=== PATIENT | male | born 1950 | race Hispanic/Latino ===

== ENCOUNTER 2017-10-31 19:19 | Emergency (ER) | payer MEDICARE ==
[2017-10-31 19:43] VITALS: TEMP 98.1
--- NOTE | 2017-10-31 20:42 | ED PDOC ---
HPI: Male Pain Time Seen by Provider: 10/31/17 20:10 Chief Complaint (Nursing): Male Genitourinary Chief Complaint (Provider): Urinary Retention History Per: Patient History/Exam Limitations: no limitations Onset/Duration Of Symptoms: Hrs (since 06:00) Current Symptoms Are (Timing): Still Present Additional Complaint(s): 67 year old male presented to the ED complaining of urinary retention since 06: 00 today. Patient reports he is unable to urinate and has suprapubic pain and constipation. He is also complaining of painful hemorrhoids for a couple of days. Patient states he has a lot of pain in the bladder and wants to be evaluated. PCP: Tristen Brock Past Medical History Reviewed: Historical Data, Nursing Documentation, Vital Signs Vital Signs: Last Vital Signs Temp 98.1 F 10/31/17 19:41 Pulse 75 10/31/17 19:41 Resp 16 10/31/17 19:41 BP 154/85 H 10/31/17 19:41 Pulse Ox 97 10/31/17 19:41 - Medical History Other PMH: Enlarged prostate - Surgical History Other surgeries: bilateral hernia repair and renal repair - Family History Family History: States: Unknown Family Hx - Home Medications Home Medications: Ambulatory Orders Medication Instructions Recorded Docusate Sodium [Colace] 100 mg PO BID #30 capsule 10/31/17 Nitrofurantoin Macrocrystals 100 mg PO BID #10 cap 10/31/17 [Macrobid] Tamsulosin HCl [Flomax] 0.4 mg PO DAILY #5 cap.er.24h 10/31/17 - Allergies Allergies/Adverse Reactions: Allergies Allergy/AdvReac Type Severity Reaction Status Date / Time No Known Allergies Allergy Verified 10/31/17 20:05 Review of Systems ROS Statement: Except As Marked, All Systems Reviewed And Found Negative Gastrointestinal: Positive for: Abdominal Pain (suprapubic), Constipation, Other (painful hemorrhoids) Genitourinary Male: Positive for: Other (Urinary retention) Physical Exam - Reviewed Nursing Documentation Reviewed: Yes Vital Signs Reviewed: Yes - Physical Exam Appears: Positive for: Non-toxic, Uncomfortable Head Exam: Positive for: ATRAUMATIC, NORMAL INSPECTION, NORMOCEPHALIC Skin: Positive for: Normal Color, Warm, Dry Eye Exam: Positive for: Normal appearance Neck: Positive for: Normal, Painless ROM Cardiovascular/Chest: Positive for: Regular Rate, Rhythm. Negative for: Murmur Respiratory: Positive for: Normal Breath Sounds. Negative for: Wheezing, Respiratory Distress Gastrointestinal/Abdominal: Positive for: Soft, Tenderness (suprapubic tenderness). Negative for: Distended Extremity: Positive for: Normal ROM Neurologic/Psych: Positive for: Alert, Oriented. Negative for: Motor/Sensory Deficits - Laboratory Results Result Diagrams: 10/31/17 21:21 10/31/17 21:21 - ECG O2 Sat by Pulse Oximetry: 97 (RA) Pulse Ox Interpretation: Normal - Progress Re-evaluation Time: 22:21 Condition: Re-examined, Improved Medical Decision Making Medical Decision Making: Initial Impression: Urinary retention Differentials: UTI, acute renal failure, obstructive uropathy Initial Plan: BMP Dipstick CBC Fairbanks urinary catheter 20:15 Fairbanks catheter inserted. Significant urinary output in bag. Patient is feeling much better. Scribe Attestation: Documented by Danyel Tanner acting as a scribe for Tal Cruz MD. Provider Scribe Attestation: All medical record entries made by the Scribe were at my direction and personally dictated by me. I have reviewed the chart and agree that the record accurately reflects my personal performance of the history, physical exam, medical decision making, and the department course for this patient. I have also personally directed, reviewed, and agree with the discharge instructions and disposition. Disposition - Clinical Impression Clinical Impression: Urinary retention Doctor Will See Patient In The: Office Counseled Patient/Family Regarding: Studies Performed, Diagnosis, Need For Followup - Disposition Referrals: Becca Tyler MD [Medical Doctor] - Disposition: Routine/Home Disposition Time: 22:22 Condition: GOOD Additional Instructions: Take your medications as instructed. Follow up with your PCP in 2-3 days for fairbanks removal. Prescriptions: Docusate Sodium [Colace] 100 mg PO BID #30 capsule Nitrofurantoin Macrocrystals [Macrobid] 100 mg PO BID #10 cap Tamsulosin HCl [Flomax] 0.4 mg PO DAILY #5 cap.er.24h Instructions: Urinary Retention (DC), Constipation in Adults
[2017-10-31 21:28] LABS: BASO % 0.4 % (0.0-2.0); EOS % 1.1 % (0.0-4.0); HEMOGLOBIN 13.3 g/dL (12.0-18.0); LYMPH # 1.1 K/uL (1.0-4.3); LYMPH % 25.7 % (20.0-40.0); MEAN CELL VOLUME 83.7 fl (80.0-94.0); MEAN CORPUSCULAR HEMOGLOBIN 29.1 pg (27.0-31.0); MEAN CORPUSCULAR HGB CONC 34.8 g/dL (33.0-37.0); MEAN PLATELET VOLUME 7.7 fl (7.2-11.7); MONO # 0.6 K/uL (0.0-0.8); MONO % 13.3 % (0.0-10.0); NEUT # 2.5 K/uL (1.8-7.0); NEUT % 59.5 % (50.0-75.0); NRBC % 0.1 % (0.0-0.0); RBC 4.56 Mil/uL (4.40-5.90); RED CELL DISTRIBUTION WIDTH 13.5 % (11.5-14.5); WHITE BLOOD COUNT 4.3 K/uL (4.8-10.8)
[2017-10-31 21:33] LABS: BLOOD UREA NITROGEN 13 mg/dl (9-20); GFR AFRICAN-AMERICAN > 60; GFR NON-AFRICAN AMERICAN > 60
[2017-10-31 23:07] VITALS: BP 114/65; PULSE 62; RESP 18; O2SAT 99
== END 2017-10-31 23:15 | disposition home or self-care (01) ==
LOC: H.ER 19:19
DX: R33.9 Retention of urine, unspecified (principal); K59.00 Constipation, unspecified; N40.1 Benign prostatic hyperplasia with lower urinary tract symptoms

== ENCOUNTER 2017-11-03 08:11 | Emergency (ER) | payer MEDICARE, OTHER ==
[2017-11-03 08:19] VITALS: BMI 22.1
--- NOTE | 2017-11-03 08:54 | ED PDOC ---
HPI: General Adult Time Seen by Provider: 11/03/17 08:42 History Per: Patient Onset/Duration Of Symptoms: Days (3) Current Symptoms Are (Timing): Still Present Severity: Mild Additional Complaint(s): Requesting removal Fairbanks and leg bag. Seen 3 days ago here for urinary retention. Fairbanks placed and sent home with leg bag. Has not called for f/u with Past Medical History Vital Signs: Last Vital Signs Temp 97.1 F L 11/03/17 08:18 Pulse 94 H 11/03/17 08:18 Resp BP 134/85 11/03/17 08:18 Pulse Ox 96 11/03/17 08:18 - Medical History PMH: No Chronic Diseases - Family History Family History: States: Unknown Family Hx - Home Medications Home Medications: Ambulatory Orders Medication Instructions Recorded Docusate Sodium [Colace] 100 mg PO BID #30 capsule 10/31/17 Nitrofurantoin Macrocrystals 100 mg PO BID #10 cap 10/31/17 [Macrobid] Tamsulosin HCl [Flomax] 0.4 mg PO DAILY #5 cap.er.24h 10/31/17 - Allergies Allergies/Adverse Reactions: Allergies Allergy/AdvReac Type Severity Reaction Status Date / Time No Known Allergies Allergy Verified 10/31/17 20:05 Review of Systems Constitutional: Negative for: Fever Gastrointestinal: Negative for: Abdominal Pain Genitourinary Male: Positive for: Dysuria, Hematuria Physical Exam - Physical Exam Appears: Positive for: Non-toxic, No Acute Distress Gastrointestinal/Abdominal: Positive for: Bowel Sounds, Soft. Negative for: Tenderness Male Genital Exam: Positive for: other (Scant blood tinged urine in leg bag) - ECG O2 Sat by Pulse Oximetry: 96 Medical Decision Making Medical Decision Making: Advised leaving fairbanks in place until seen by . Pt agrees. Disposition - Clinical Impression Clinical Impression: Urinary retention - Patient ED Disposition Is Patient to be Admitted: No - Disposition Referrals: Becca Tyler MD [Medical Doctor] - Disposition: Routine/Home Disposition Time: 08:54 Condition: FAIR Instructions: Urinary Retention (DC)
[2017-11-03 09:07] VITALS: BP 132/79; PULSE 81; RESP 18; TEMP 97.8; O2SAT 98
== END 2017-11-03 09:00 | disposition home or self-care (01) ==
LOC: H.ER 08:11
DX: R33.9 Retention of urine, unspecified (principal)

== ENCOUNTER 2017-11-04 10:12 | Emergency (ER) | payer MEDICARE ==
[2017-11-04 10:12] VITALS: BMI 22.1
[2017-11-04 12:06] LABS: ALB/GLOB RATIO 1.3 (1.0-2.1); ALBUMIN 4.1 g/dL (3.5-5.0); ALT/SGPT 30 U/L (21-72); AST/SGOT 33 U/L (17-59); BLOOD UREA NITROGEN 13 mg/dl (9-20); CALCIUM 9.2 mg/dL (8.4-10.2); GFR AFRICAN-AMERICAN > 60; GFR NON-AFRICAN AMERICAN > 60
--- NOTE | 2017-11-04 12:07 | ED PDOC ---
HPI: Male Pain Time Seen by Provider: 11/04/17 10:34 Chief Complaint (Nursing): Male Genitourinary Chief Complaint (Provider): Male Genitourinary History Per: Patient History/Exam Limitations: no limitations Onset/Duration Of Symptoms: Days (x2) Current Symptoms Are (Timing): Still Present Additional Complaint(s): 67 y/o male with a PMHx of urinary retention (due to BPH) presenting for evaluation of difficulty urinating. Patient was seen at this facility on for evaluation of urinary retention and had a fairbanks catheter placed at that time. Patient reports he was seen by Dr. Tyler yesterday and had the fairbanks catheter removed. He states since that time he has been unable to urinate. Patient is also complaining of constipation. He denies fever and vomiting. PMD: None provided Past Medical History Reviewed: Historical Data, Nursing Documentation, Vital Signs Vital Signs: Last Vital Signs Temp 98.1 F 11/04/17 10:19 Pulse 97 H 11/04/17 10:19 Resp 20 11/04/17 10:19 BP 167/87 H 11/04/17 10:19 Pulse Ox 97 11/04/17 10:19 - Medical History PMH: Benign Prostatic Hyperplasia - Surgical History Surgical History: Hernia Repair - Family History Family History: States: Unknown Family Hx - Social History Current smoker - smoking cessation education provided: No Alcohol: None Drugs: Denies - Home Medications Home Medications: Ambulatory Orders Medication Instructions Recorded Docusate Sodium [Colace] 100 mg PO BID #30 capsule 10/31/17 Nitrofurantoin Macrocrystals 100 mg PO BID #10 cap 10/31/17 [Macrobid] Tamsulosin HCl [Flomax] 0.4 mg PO DAILY #5 cap.er.24h 10/31/17 - Allergies Allergies/Adverse Reactions: Allergies Allergy/AdvReac Type Severity Reaction Status Date / Time No Known Allergies Allergy Verified 11/04/17 10:36 Review of Systems ROS Statement: Except As Marked, All Systems Reviewed And Found Negative Constitutional: Negative for: Fever Gastrointestinal: Positive for: Constipation. Negative for: Vomiting Genitourinary Male: Positive for: Other (retention) Physical Exam - Reviewed Nursing Documentation Reviewed: Yes Vital Signs Reviewed: Yes - Physical Exam Appears: Positive for: Non-toxic, No Acute Distress Head Exam: Positive for: ATRAUMATIC, NORMAL INSPECTION, NORMOCEPHALIC Skin: Positive for: Normal Color, Warm, Dry Eye Exam: Positive for: EOMI, Normal appearance, PERRL ENT: Positive for: Normal ENT Inspection Neck: Positive for: Normal, Painless ROM, Supple Cardiovascular/Chest: Positive for: Regular Rate, Rhythm. Negative for: Murmur Respiratory: Positive for: Normal Breath Sounds. Negative for: Respiratory Distress Gastrointestinal/Abdominal: Positive for: Soft, Tenderness (slight superpubic tenderness) Back: Positive for: Normal Inspection. Negative for: L CVA Tenderness, R CVA Tenderness, Vertebral Tenderness Extremity: Positive for: Normal ROM. Negative for: Pedal Edema, Deformity Neurologic/Psych: Positive for: Alert, Oriented. Negative for: Motor/Sensory Deficits - Laboratory Results Result Diagrams: 11/04/17 11:20 11/04/17 11:20 - ECG O2 Sat by Pulse Oximetry: 97 (RA) Pulse Ox Interpretation: Normal Medical Decision Making Medical Decision Makin:39 Impression: Urinary retention Plan: -CMP -CBC w/ differential -Fairbanks catheter -Reevaluation 12:[address] Tyler. 12:53 Patient able to urinate 800 ccs after fairbanks catheter placement. 12:[address] Tyler. Patient to be discharged with catheter, leg bag, and instructions to follow up at Dr. Tyler's office on 11/06/17. Scribe Attestation: Documented by Sean Gudino, acting as a scribe for Yaniv Seaman MD. Provider Scribe Attestation: All medical record entries made by the Scribe were at my direction and personally dictated by me. I have reviewed the chart and agree that the record accurately reflects my personal performance of the history, physical exam, medical decision making, and the department course for this patient. I have also personally directed, reviewed, and agree with the discharge instructions and disposition. Disposition - Clinical Impression Clinical Impression: Urinary retention, Constipation - Patient ED Disposition Is Patient to be Admitted: No Counseled Patient/Family Regarding: Studies Performed, Diagnosis, Need For Followup - Disposition Referrals: Becca Tyler MD [Medical Doctor] - Disposition: Routine/Home Disposition Time: 12:56 Condition: IMPROVED Additional Instructions: follow up with Dr Tyler Thursday continue high fiber diet and colace for constipation return to the ED with any worsening or concerning symptoms Instructions: Constipation, Adult (DC), How to Care for Your Fairbanks Catheter, Male, Urinary Retention (DC) Forms: [employer] ([place]rainian)
[2017-11-04 12:27] LABS: BASO % 0.4 % (0.0-2.0); EOS % 0.7 % (0.0-4.0); HEMOGLOBIN 12.7 g/dL (12.0-18.0); LYMPH # 0.6 K/uL (1.0-4.3); LYMPH % 23.7 % (20.0-40.0); MEAN CELL VOLUME 84.8 fl (80.0-94.0); MEAN CORPUSCULAR HEMOGLOBIN 28.4 pg (27.0-31.0); MEAN CORPUSCULAR HGB CONC 33.5 g/dL (33.0-37.0); MEAN PLATELET VOLUME 8.4 fl (7.2-11.7); MONO # 0.3 K/uL (0.0-0.8); MONO % 12.8 % (0.0-10.0); NEUT # 1.6 K/uL (1.8-7.0); NEUT % 62.4 % (50.0-75.0); NRBC % 0.1 % (0.0-0.0); RBC 4.48 Mil/uL (4.40-5.90); RED CELL DISTRIBUTION WIDTH 13.2 % (11.5-14.5); WHITE BLOOD COUNT 2.5 K/uL (4.8-10.8)
[2017-11-04 13:51] VITALS: BP 132/70; PULSE 77; RESP 18; TEMP 97; O2SAT 99
== END 2017-11-04 13:50 | disposition home or self-care (01) ==
LOC: H.ER 10:12
DX: R33.9 Retention of urine, unspecified (principal)

== ENCOUNTER 2017-12-09 20:41 | Emergency (ER) | payer MEDICARE, OTHER ==
[2017-12-09 20:41] VITALS: BMI 20.5
--- NOTE | 2017-12-09 23:12 | ED PDOC ---
HPI: Male Pain Time Seen by Provider: 12/09/17 21:01 Chief Complaint (Nursing): Male Genitourinary Chief Complaint (Provider): blocked fairbanks Additional Complaint(s): Pt had fairbanks cath placed by Dr Tyler. Sent to ER for malfunctioning, possible blockage. Past Medical History Reviewed: Historical Data, Nursing Documentation, Vital Signs Vital Signs: Last Vital Signs Temp 98.3 F 12/09/17 20:55 Pulse 93 H 12/09/17 20:55 Resp 16 12/09/17 20:55 BP 135/84 12/09/17 20:55 Pulse Ox 97 12/09/17 20:55 - Medical History PMH: Benign Prostatic Hyperplasia - Surgical History Surgical History: Hernia Repair - Family History Family History: States: Unknown Family Hx - Home Medications Home Medications: Ambulatory Orders Medication Instructions Recorded Nitrofurantoin Macrocrystals 100 mg PO BID #10 cap 10/31/17 [Macrobid] - Allergies Allergies/Adverse Reactions: Allergies Allergy/AdvReac Type Severity Reaction Status Date / Time No Known Allergies Allergy Verified 12/09/17 20:55 Review of Systems Gastrointestinal: Positive for: Abdominal Pain Genitourinary Male: Positive for: Penile Pain Physical Exam - Reviewed Nursing Documentation Reviewed: Yes Vital Signs Reviewed: Yes - Physical Exam Appears: Positive for: No Acute Distress Skin: Positive for: Warm, Dry Gastrointestinal/Abdominal: Positive for: Soft, Distended (mild). Negative for : Tenderness Male Genital Exam: Positive for: other (3-way fairbanks in place) - ECG O2 Sat by Pulse Oximetry: 97 - Progress ED Course And Treament: On initial attempt of irrigation, unable to clear block DW Dr Tyler who advised replacement of fairbanks Fairbanks replaced by RN with successful relief of retention. Disposition - Clinical Impression Clinical Impression: Urinary retention, Malfunction of Fairbanks catheter - Disposition Referrals: Becca Tyler MD [Medical Doctor] - 12/10/17 Disposition: Routine/Home Disposition Time: 23:04 Condition: IMPROVED Instructions: Fairbanks Catheter, Male Forms: [employer] ([place])
[2017-12-09 23:51] VITALS: BP 130/80; PULSE 90; RESP 18; TEMP 98.6
[2017-12-10 16:04] VITALS: O2SAT 97
== END 2017-12-09 23:40 | disposition home or self-care (01) ==
LOC: H.ER 20:41
DX: R33.8 Other retention of urine (principal); N40.1 Benign prostatic hyperplasia with lower urinary tract symptoms

== ENCOUNTER 2018-01-03 21:22 | Inpatient (IN) | payer MEDICARE ==
[2018-01-03 21:22] VITALS: BMI 20.5
--- NOTE | 2018-01-03 22:35 | ED PDOC ---
HPI: Skin/Bite Injury Time Seen by Provider: 01/03/18 21:40 Chief Complaint (Nursing): Male Genitourinary Chief Complaint (Provider): Male Genitourinary History Per: Patient History/Exam Limitations: no limitations Onset/Duration Of Symptoms: Days Current Symptoms Are (Timing): Still Present Quality Of Symptoms: Painful, Itching Additional Complaint(s): 67 y/o male with a PMHx of BPH presents to the ED complaining of diffuse rash, onset Thursday. Patient states rash is itchy and uncomfortable. Patient reports of he started taking Bactrim two days prior to the onset of the rash (6 days ago) to treat a UTI. Patient states he had a green light laser procedure done by Dr. Tyler for his prostrate at the end of November and was put on Cipro but due to GI adverse affects, had to stop and be put on bactrim. Patient is now also complaining of frequent urination, painful urination, bladder pain, myalgia, chills, constipation and is unable to sleep at night. Patient states his last dose of Bactrim was at 8 PM yesterday reports of feeling less itchy since. Patient reports his sister called Dr. Tyler who advised the patient to go to the ER for further evaluation. Denies nausea, vomiting, hematuria and fever. PMD: Tristen Iqbal Past Medical History Reviewed: Historical Data, Nursing Documentation, Vital Signs Vital Signs: Last Vital Signs Temp 98.1 F 01/04/18 08:18 Pulse 83 01/04/18 08:18 Resp 19 01/04/18 08:18 BP 103/61 01/04/18 08:18 Pulse Ox 97 01/04/18 08:18 - Medical History PMH: Benign Prostatic Hyperplasia - Surgical History Surgical History: Hernia Repair - Family History Family History: States: Unknown Family Hx - Social History Current smoker - smoking cessation education provided: No Ex-Smoker (has not smoked in the last 12 months): Yes - Home Medications Home Medications: Ambulatory Orders Medication Instructions Recorded Multivit-Min/FA/Lycopen/Lutein 1 tab PO DAILY 01/04/18 [Centrum Silver Tablet] - Allergies Allergies/Adverse Reactions: Allergies Allergy/AdvReac Type Severity Reaction Status Date / Time sulfamethoxazole Allergy RASH Verified 01/03/18 21:36 [From Bactrim] trimethoprim [From Bactrim] Allergy RASH Verified 01/03/18 21:36 Review of Systems ROS Statement: Except As Marked, All Systems Reviewed And Found Negative Constitutional: Positive for: Chills, Other (Myalgia). Negative for: Fever Gastrointestinal: Positive for: Constipation. Negative for: Nausea, Vomiting Genitourinary Male: Positive for: Dysuria, Frequency. Negative for: Hematuria Skin: Positive for: Rash Physical Exam - Reviewed Nursing Documentation Reviewed: Yes Vital Signs Reviewed: Yes - Physical Exam Appears: Positive for: In Acute Distress (Mild, painful) Head Exam: Positive for: ATRAUMATIC, NORMOCEPHALIC Skin: Positive for: Warm, Dry, Rash (Macular papular rash mostly on the upper arm and chest with isolated area on the lower extremity. Deep erythema noted to the chin and cheeks. ) Eye Exam: Positive for: EOMI, PERRL Neck: Positive for: Painless ROM, Supple Cardiovascular/Chest: Positive for: Regular Rate, Rhythm. Negative for: Murmur Respiratory: Positive for: Normal Breath Sounds. Negative for: Respiratory Distress Gastrointestinal/Abdominal: Positive for: Soft. Negative for: Tenderness Back: Positive for: Normal Inspection. Negative for: Decreased ROM Extremity: Positive for: Normal ROM. Negative for: Deformity Lymphatic: Negative for: Adenopathy Neurologic/Psych: Positive for: Alert, Oriented (x3), Mood/Affect (normal mood, anxious affect). Negative for: Motor/Sensory Deficits - Laboratory Results Result Diagrams: 01/04/18 06:00 01/04/18 06:00 - ECG O2 Sat by Pulse Oximetry: 97 (RA) Pulse Ox Interpretation: Normal Medical Decision Making Medical Decision Making: Time: 2221 Impression: Dysuria and allergic reaction Differentials include but not limited to UTI, cystitis and post procedure urethritis. Plan: -- CMP -- Lact Acid, Plasma -- CBC with differentials -- Blood Culture -- Urine Culture -- IV Insertion -- Urinalysis UA c/w persistent UTI. Pt also has worsening leukopenia PUAL Tyler. Pt will be hospitalized for resistant UTI. Will follow inpatient [facility] resident admitting for Dr Iqbal PMD Scribe Attestation: Documented by Naty Morton acting as a scribe for Dr. Yaneth Perez. Provider Scribe Attestation: All medical record entries made by the Scribe were at my direction and personally dictated by me. I have reviewed the chart and agree that the record accurately reflects my personal performance of the history, physical exam, medical decision making, and the department course for this patient. I have also personally directed, reviewed, and agree with the discharge instructions and disposition. Disposition - Clinical Impression Clinical Impression: Urinary tract infection, Allergic reaction, Leukopenia Counseled Patient/Family Regarding: Studies Performed, Diagnosis - Disposition Disposition Time: 23:00 Condition: FAIR - Pt Status Changed To: Hospital Disposition Of: Inpatient - Admit Certification Admit to Inpatient:: After my assessment, the patient will require hospitalization for at least two midnights. This is because of the severity of symptoms shown, intensity of services needed, and/or the medical risk in this patient being treated as an outpatient. - POA Present On Arrival: None
[2018-01-03 22:46] LABS: BASO % 1.1 % (0.0-2.0); EOS # 0.3 K/uL (0.0-0.7); EOS % 11.6 % (0.0-4.0); LYMPH % 46.8 % (20.0-40.0); MEAN CELL VOLUME 79.7 fl (80.0-94.0); MEAN CORPUSCULAR HEMOGLOBIN 26.6 pg (27.0-31.0); MEAN CORPUSCULAR HGB CONC 33.3 g/dL (33.0-37.0); MEAN PLATELET VOLUME 8.4 fl (7.2-11.7); MONO # 0.4 K/uL (0.0-0.8); MONO % 19.6 % (0.0-10.0); NEUT # 0.5 K/uL (1.8-7.0); NEUT % 20.9 % (50.0-75.0); NRBC % 0.3 % (0.0-0.0); RBC 4.5 Mil/uL (4.40-5.90); RED CELL DISTRIBUTION WIDTH 13.5 % (11.5-14.5); WHITE BLOOD COUNT 2.2 K/uL (4.8-10.8)
[2018-01-03 22:54] LABS: SQUAMOUS EPITHIAL 1 /hpf (0-5); URINE BACTERIA MOD (<OCC); URINE BILIRUBIN NEGATIVE (NEGATIVE); URINE BLOOD MODERATE (NEGATIVE); URINE CLARITY TURBID (Clear); URINE COLOR AMBER (YELLOW); URINE GLUCOSE (UA) NEG (Normal); URINE LEUKOCYTE ESTERASE LARGE Leu/uL (Negative); URINE PROTEIN 100 mg/dL (NEGATIVE); URINE UROBILINOGEN 0.2-1.0 mg/dL (0.2-1.0); WBC CLUMPS RARE /hpf
[2018-01-03 23:00] LABS: ALB/GLOB RATIO 1.3 (1.0-2.1); CALCIUM 8.8 mg/dL (8.4-10.2); GFR NON-AFRICAN AMERICAN > 60
[2018-01-03 23:05] LABS: ALT/SGPT 164 U/L (21-72); AST/SGOT 147 U/L (17-59); BLOOD UREA NITROGEN 14 mg/dl (9-20)
[2018-01-03] MEDS ORDERED: cefTRIAXone (Rocephin) 1 gm Inj ONE (23:57)
--- NOTE | 2018-01-04 00:13 | CP.PCM.HP ---
History of Present Illness - History of Present Illness History of Present Illness: 67 yo ,m, PMhx/o BPH who presents to ED c/o dysuria started 7 days ago, associated with urgency to urinate, nocturia, suprapubic pain, chills, sweating and a recent diffuse generalized rash started 4 days ago while on treatment with Bactrim day 6 today associated with itching. Patient states he had a green light laser procedure done by Dr. Tyler for his prostrate on 12/07/17. Patient was put on Cipro after procedure, folley DC 4 days after procedure while on Abx , but he had to stop Cipro due to GI side effects and myalgia. Patient was started in Bactrim and while on treatment developed rash. Patient also reports constipation for the last 3 weeks, and was able to have 1 BM today with dulcolax. He denies fever, nausea, vomiting, diarrhea, chest pain, SOB, gross hematuria, flank pain, hx/o coagulopathy. Denies allergies to medications except this rash while on Bactrim. PMD: [place] PMHx: BPH Allergies: Bactrim ( rash) Psurghx: Right inguinal hernia repair, hemorrhoids, cataracts. PShx: ETOH 1 drink/day x 20 years. Quit 21 years ago. No cig, no rect drugs Patient status: full code Ed course: VS: Nl Labs: CBC: WBC: 2.2 Neut%: 20.9 Lymph: 46.8 band % 0 as per lab. ANC: 460 . AST/ALT 147/164 UA: hematuria, leukocytoria, leukocyte sterase large, bact moderate,nitrate neg Imaging: no Meds: Ceftriaxone 1 g daily Present on Admission - Present on Admission Any Indicators Present on Admission: No History of DVT/PE: No History of Uncontrolled Diabetes: No Urinary Catheter: No Decubitus Ulcer Present: No Review of Systems - Review of Systems All systems: reviewed and no additional remarkable complaints except - Genitourinary Genitourinary: Dysuria, Nocturia, Urinary Frequency, Urinary Urgency - Hematologic/Lymphatic Additional comments: skin rash Past Patient History - Past Social History Smoking Status: Former Smoker - GENITOURINARY/GYNECOLOGICAL Hx Prostate Problems: Yes - PSYCHIATRIC Hx Substance Use: No - SURGICAL HISTORY Hx Surgeries: Yes Hx Herniorrhaphy: Yes Other/Comment: Green light laser 12/02 - ANESTHESIA Hx Anesthesia: Yes Hx Anesthesia Reactions: No Meds Allergies/Adverse Reactions: Allergies Allergy/AdvReac Type Severity Reaction Status Date / Time sulfamethoxazole Allergy RASH Verified 01/03/18 21:36 [From Bactrim] trimethoprim [From Bactrim] Allergy RASH Verified 01/03/18 21:36 Physical Exam - Constitutional Appears: No Acute Distress - Head Exam Head Exam: ATRAUMATIC, NORMOCEPHALIC - Eye Exam Eye Exam: Normal appearance - ENT Exam ENT Exam: Mucous Membranes Moist, Normal Exam - Neck Exam Neck exam: Positive for: Normal Inspection - Respiratory Exam Respiratory Exam: Clear to Auscultation Bilateral. absent: Rales, Rhonchi, Wheezes - Cardiovascular Exam Cardiovascular Exam: REGULAR RHYTHM, +S1, +S2 - GI/Abdominal Exam GI & Abdominal Exam: Normal Bowel Sounds, Soft. absent: Guarding, Rebound, Tenderness - Extremities Exam Extremities exam: Positive for: full ROM. Negative for: pedal edema Additional comments: erythematous skin rash over anterior aspect of bilateral knees - Back Exam Back exam: NORMAL INSPECTION. absent: CVA tenderness (L), CVA tenderness (R) - Neurological Exam Neurological exam: Alert, Oriented x3 - Psychiatric Exam Psychiatric exam: Normal Affect, Normal Mood - Skin Skin Exam: Petechiae (isolated petechiae over face, arms, legs. ), Rash ( erythematous rash over face, chest, back, legs. ) Results - Vital Signs Recent Vital Signs: Last Vital Signs Temp 98.9 F 01/03/18 21:29 Pulse 96 H 01/03/18 21:29 Resp 16 01/03/18 21:29 BP 117/73 01/03/18 21:29 Pulse Ox 97 01/03/18 22:43 - Labs Result Diagrams: 01/03/18 22:30 01/03/18 22:30 Labs: Laboratory Results - last 24 hr 01/03/18 01/03/18 01/03/18 22:30 22:30 22:30 WBC 2.2 L RBC 4.50 Hgb 12.0 Hct 35.9 MCV 79.7 L D MCH 26.6 L MCHC 33.3 RDW 13.5 Plt Count 172 D MPV 8.4 Neut % (Auto) 20.9 L Lymph % (Auto) 46.8 H [place] % (Auto) 19.6 H Eos % (Auto) 11.6 H Baso % (Auto) 1.1 Neut # (Auto) 0.5 L Lymph # (Auto) 1.0 [place] # (Auto) 0.4 Eos # (Auto) 0.3 Baso # (Auto) 0.0 Sodium 134 Potassium 5.0 Chloride 95 L Carbon Dioxide 28 Anion Gap 16 BUN 14 Creatinine 0.8 Est GFR ( Amer) > 60 Est GFR (Non-Af Amer) > 60 Random Glucose 113 H Lactic Acid 1.3 Calcium 8.8 Total Bilirubin 0.5 AST 147 H D ALT 164 H D Alkaline Phosphatase 86 Total Protein 7.0 Albumin 4.0 Globulin 3.1 Albumin/Globulin Ratio 1.3 Urine Color Urine Clarity Urine pH Ur Specific [place] Urine Protein Urine Glucose (UA) Urine Ketones Urine Blood Urine Nitrate Urine Bilirubin Urine Urobilinogen Ur Leukocyte Esterase Urine RBC (Auto) Urine WBC Clumps (Auto) Urine Microscopic WBC Ur Squamous Epith Cells Urine Bacteria 01/03/18 22:30 WBC RBC Hgb Hct MCV MCH MCHC RDW Plt Count MPV Neut % (Auto) Lymph % (Auto) [place] % (Auto) Eos % (Auto) Baso % (Auto) Neut # (Auto) Lymph # (Auto) [place] # (Auto) Eos # (Auto) Baso # (Auto) Sodium Potassium Chloride Carbon Dioxide Anion Gap BUN Creatinine Est GFR ( Amer) Est GFR (Non-Af Amer) Random Glucose Lactic Acid Calcium Total Bilirubin AST ALT Alkaline Phosphatase Total Protein Albumin Globulin Albumin/Globulin Ratio Urine Color Fadia Urine Clarity Turbid Urine pH 6.0 Ur Specific [place] 1.023 Urine Protein 100 Urine Glucose (UA) Neg Urine Ketones Negative Urine Blood Moderate Urine Nitrate Negative Urine Bilirubin Negative Urine Urobilinogen 0.2-1.0 Ur Leukocyte Esterase Large Urine RBC (Auto) 110 H Urine WBC Clumps (Auto) Rare H Urine Microscopic WBC 798 H Ur Squamous Epith Cells 1 Urine Bacteria Mod H Assessment & Plan - Assessment and Plan (Free Text) Plan: 67 yo ,m, PMHx/o BPH admitted for Acute cystitis ( failed outpatient treatment) Leukopenia. 1) Acute cystitis -secondary to a green light laser procedure and folley catheter -to r/o acute prostatitis. -failed outpatient treatment Cipro and Bactrim -s/p Ceftriaxone in Ed -c/w Ceftriaxone 1 gm daily IV -Urology consult suggested Dr Tyler -f/u urine cx ,blood cx -Iv fluids maintenance (BP systolic 100) 2) BPH -cronic -recent green light laser procedure -not on Flomax now as per urologist recommendations 3) Leukopenia May be 2/2 Bactrim side effects ( agranulocytosis) but noted WBC 2.5 in 10/2017 - ANC: 460 -neutropenic precaution -hem/onc consult suggested. Dr Castillo -may need granix -f/u HIV results 4) Rash -may be 2/2 medications side effects -Benadryl 25 mg given. 5) Constipation -Docusate BID 6) Transaminitis May be 2/2 hepatotoxicity due to Bactrim -f/u hepatitis panel, hep B,hep c 7) DVT Prophylaxis -lovenox 40 mg sc daily
[2018-01-04] MEDS: Sodium Chloride 0.9% 1,000 ML IV SCH ×2 (02:32→12:14)
[2018-01-04 06:41] LABS: INR 1.1
[2018-01-04 06:44] LABS: PARTIAL THROMBOPLASTIN TIME 29.3 Seconds (25.6-37.1)
[2018-01-04 06:48] LABS: BASO % 0.7 % (0.0-2.0); EOS # 0.2 K/uL (0.0-0.7); EOS % 9.2 % (0.0-4.0); HEMOGLOBIN 11.3 g/dL (12.0-18.0); LYMPH # 1.5 K/uL (1.0-4.3); LYMPH % 55.8 % (20.0-40.0); MEAN CELL VOLUME 79.9 fl (80.0-94.0); MEAN CORPUSCULAR HEMOGLOBIN 26.7 pg (27.0-31.0); MEAN CORPUSCULAR HGB CONC 33.4 g/dL (33.0-37.0); MEAN PLATELET VOLUME 8.3 fl (7.2-11.7); MONO # 0.5 K/uL (0.0-0.8); MONO % 18.9 % (0.0-10.0); NEUT # 0.4 K/uL (1.8-7.0); NEUT % 15.4 % (50.0-75.0); NRBC % 0.2 % (0.0-0.0); RBC 4.23 Mil/uL (4.40-5.90); RED CELL DISTRIBUTION WIDTH 13.5 % (11.5-14.5); WHITE BLOOD COUNT 2.6 K/uL (4.8-10.8)
[2018-01-04 06:51] LABS: ALB/GLOB RATIO 1.2 (1.0-2.1); ALBUMIN 3.4 g/dL (3.5-5.0); ALT/SGPT 160 U/L (21-72); AST/SGOT 131 U/L (17-59); BLOOD UREA NITROGEN 10 mg/dl (9-20); CALCIUM 8.6 mg/dL (8.4-10.2); GFR NON-AFRICAN AMERICAN > 60
--- NOTE | 2018-01-04 08:41 | CP.PCM.PCO ---
<Kerrie Spencer - Last Filed: 01/04/18 08:40> Assessment/Plan - Assessment and Plan (Free Text) Assessment: 67 YO male PMHx of BPH admitted for Acute cystitis (failed outpatient treatment ) and Leukopenia (neutropenia). Rash resolved after Benadryl, likely allergic rx. No CVA tenderness or suprapubic tenderness. -Remains afebrile, VS stable -neutropenic precautions -ANC today 400 -cont rocephin -start colace and senakot -pending Hem/Onc and Urology recs <Tristen Iqbal - Last Filed: 01/06/18 06:55> Attending/Attestation - Attestation I have personally seen and examined this patient.: Yes I have fully participated in the care of the patient.: Yes I have reviewed all pertinent clinical information: Yes
[2018-01-04] MEDS: Enoxaparin 40 mg Syringe SC SCH (09:23)
[2018-01-04 16:47] LABS: HEPATITIS B SURFACE AG Negative (NEGATIVE)
[2018-01-04 16:52] LABS: HEPATITIS B SURFACE AG Negative (NEGATIVE)
[2018-01-04 16:58] LABS: HEPATITIS A IGM NEGATIVE (NEGATIVE); HEPATITIS B CORE AB NEGATIVE (NEGATIVE)
[2018-01-04 17:09] LABS: HEPATITIS C ANTIBODY NEGATIVE (NEGATIVE)
--- NOTE | 2018-01-04 22:22 | CP.PCM.CON ---
History of Present Illness - History of Present Illness History of Present Illness: Covering Dr. Castillo 67 year old male with a history of BPH s/p laser treatment in 11/2017, UTI requiring antibiotics (cipro/Bactrim), admitted with cystitis/UTI, with neutropenia/leukopenia. The patient is unaware of blood problems in the past. He notes to side effects with recent cipro and Bactrim which included constipation, myalgias, and rash. He took his last dose of Bactrim Thursday and came to the ER due to suprapubic pain. Review of his blood work shows an ANC that has ranged between 400-500 during this admission but was normal in October 2017 despite mild leukopenia. He is currently on neutropenic precautions and has no fevers. Past medical history: BPH s/p laser treatment Past surgical history: B/L hernia repair Family history: Brother had colon cancer, sister had uterine cancer Social history: Former tobacco and alcohol abuse. Allergies: Bactrim Review of systems: All remaining review of systems including HEENT, cardiovascular, respiratory, gastrointestinal, genitourinary, musculoskeletal, dermatologic, neurologic, and psychiatric are negative unless mentioned in the HPI. Past Patient History - Past Medical History & Family History Past Medical History?: Yes - Past Social History Smoking Status: Never Smoked - CARDIAC Hx Cardiac Disorders: No - PULMONARY Hx Respiratory Disorders: No - NEUROLOGICAL Hx Neurological Disorder: No - HEENT Hx HEENT Problems: Yes Hx Cataracts: Yes - RENAL Hx Chronic Kidney Disease: No - ENDOCRINE/METABOLIC Hx Endocrine Disorders: No - HEMATOLOGICAL/ONCOLOGICAL Hx Blood Disorders: No Hx AIDS: No Hx Human Immunodeficiency Virus (HIV): No - INTEGUMENTARY Hx Dermatological Problems: No - MUSCULOSKELETAL/RHEUMATOLOGICAL Hx Musculoskeletal Disorders: No Hx Falls: No - GASTROINTESTINAL Hx Gastrointestinal Disorders: No - GENITOURINARY/GYNECOLOGICAL Hx Genitourinary Disorders: Yes Hx Prostate Problems: Yes Hx Urinary Tract Infection: Yes - PSYCHIATRIC Hx Substance Use: No - SURGICAL HISTORY Hx Surgeries: Yes Hx Cataract Extraction: Yes Hx Herniorrhaphy: Yes Other/Comment: Green light laser surgery w/ Dr. Tyler 12/07/17 - ANESTHESIA Hx Anesthesia: Yes Hx Anesthesia Reactions: No Meds Allergies/Adverse Reactions: Allergies Allergy/AdvReac Type Severity Reaction Status Date / Time sulfamethoxazole Allergy RASH Verified 01/03/18 21:36 [From Bactrim] trimethoprim [From Bactrim] Allergy RASH Verified 01/03/18 21:36 - Medications Medications: Current Medications Acetaminophen (Tylenol 325mg Tab) 650 mg PO Q6 PRN PRN Reason: Pain, Mild (1-3) Acetaminophen (Tylenol 325mg Tab) 650 mg PO Q6 PRN PRN Reason: Fever >100.4 F Docusate Sodium (Colace) 100 mg PO BID [facility] Last Admin: 01/04/18 16:29 Dose: 100 mg Enoxaparin Sodium (Lovenox) 40 mg SC DAILY [facility] PRN Reason: Protocol Last Admin: 01/04/18 09:23 Dose: 40 mg Ceftriaxone Sodium 1 gm/ (Sodium Chloride) 100 mls @ 100 mls/hr IVPB DAILY [facility] PRN Reason: Protocol Last Admin: 01/04/18 10:23 Dose: 100 mls/hr Sennosides (Senokot Tab) 8.6 mg PO HS [facility] Last Admin: 01/04/18 22:13 Dose: 8.6 mg Physical Exam - Head Exam Head Exam: ATRAUMATIC - Eye Exam Eye Exam: Normal appearance - ENT Exam ENT Exam: Mucous Membranes Dry - Respiratory Exam Respiratory Exam: NORMAL BREATHING PATTERN - Cardiovascular Exam Cardiovascular Exam: +S1, +S2 - GI/Abdominal Exam GI & Abdominal Exam: Normal Bowel Sounds - Extremities Exam Extremities exam: Positive for: normal inspection - Neurological Exam Neurological exam: Oriented x3 - Psychiatric Exam Psychiatric exam: Normal Affect, Normal Mood - Skin Skin Exam: Warm Results - Vital Signs Recent Vital Signs: Last Vital Signs Temp 98.4 F 01/04/18 16:45 Pulse 78 01/04/18 16:45 Resp 18 01/04/18 16:45 BP 103/64 01/04/18 16:45 Pulse Ox 98 01/04/18 16:45 - Labs Result Diagrams: 01/04/18 06:00 01/04/18 06:00 Labs: Laboratory Results - last 24 hr 01/03/18 01/03/18 01/03/18 22:30 22:30 22:30 WBC 2.2 L RBC 4.50 Hgb 12.0 Hct 35.9 MCV 79.7 L D MCH 26.6 L MCHC 33.3 RDW 13.5 Plt Count 172 D MPV 8.4 Neut % (Auto) 20.9 L Lymph % (Auto) 46.8 H [place] % (Auto) 19.6 H Eos % (Auto) 11.6 H Baso % (Auto) 1.1 Neut # (Auto) 0.5 L Lymph # (Auto) 1.0 [place] # (Auto) 0.4 Eos # (Auto) 0.3 Baso # (Auto) 0.0 PT INR APTT Sodium 134 Potassium 5.0 Chloride 95 L Carbon Dioxide 28 Anion Gap 16 BUN 14 Creatinine 0.8 Est GFR ( Amer) > 60 Est GFR (Non-Af Amer) > 60 Random Glucose 113 H Lactic Acid 1.3 Calcium 8.8 Total Bilirubin 0.5 AST 147 H D ALT 164 H D Alkaline Phosphatase 86 Total Protein 7.0 Albumin 4.0 Globulin 3.1 Albumin/Globulin Ratio 1.3 Urine Color Urine Clarity Urine pH Ur Specific [place] Urine Protein Urine Glucose (UA) Urine Ketones Urine Blood Urine Nitrate Urine Bilirubin Urine Urobilinogen Ur Leukocyte Esterase Urine RBC (Auto) Urine WBC Clumps (Auto) Urine Microscopic WBC Ur Squamous Epith Cells Urine Bacteria Hepatitis A IgM Ab Hep Bs Antigen Hep Bs Antibody Hep B Core IgM Ab Hepatitis C Antibody 01/03/18 01/04/18 01/04/18 22:30 06:00 06:00 WBC 2.6 L RBC 4.23 L Hgb 11.3 L Hct 33.8 L MCV 79.9 L MCH 26.7 L MCHC 33.4 RDW 13.5 Plt Count 168 MPV 8.3 Neut % (Auto) 15.4 L Lymph % (Auto) 55.8 H [place] % (Auto) 18.9 H Eos % (Auto) 9.2 H Baso % (Auto) 0.7 Neut # (Auto) 0.4 L Lymph # (Auto) 1.5 [place] # (Auto) 0.5 Eos # (Auto) 0.2 Baso # (Auto) 0.0 PT 12.0 INR 1.1 APTT 29.3 Sodium Potassium Chloride Carbon Dioxide Anion Gap BUN Creatinine Est GFR ( Amer) Est GFR (Non-Af Amer) Random Glucose Lactic Acid Calcium Total Bilirubin AST ALT Alkaline Phosphatase Total Protein Albumin Globulin Albumin/Globulin Ratio Urine Color Fadia Urine Clarity Turbid Urine pH 6.0 Ur Specific [place] 1.023 Urine Protein 100 Urine Glucose (UA) Neg Urine Ketones Negative Urine Blood Moderate Urine Nitrate Negative Urine Bilirubin Negative Urine Urobilinogen 0.2-1.0 Ur Leukocyte Esterase Large Urine RBC (Auto) 110 H Urine WBC Clumps (Auto) Rare H Urine Microscopic WBC 798 H Ur Squamous Epith Cells 1 Urine Bacteria Mod H Hepatitis A IgM Ab Hep Bs Antigen Hep Bs Antibody Hep B Core IgM Ab Hepatitis C Antibody 01/04/18 01/04/18 01/04/18 06:00 06:00 06:00 WBC RBC Hgb Hct MCV MCH MCHC RDW Plt Count MPV Neut % (Auto) Lymph % (Auto) [place] % (Auto) Eos % (Auto) Baso % (Auto) Neut # (Auto) Lymph # (Auto) [place] # (Auto) Eos # (Auto) Baso # (Auto) PT INR APTT Sodium 136 Potassium 4.5 Chloride 99 Carbon Dioxide 30 Anion Gap 12 BUN 10 Creatinine 0.7 L Est GFR ( Amer) > 60 Est GFR (Non-Af Amer) > 60 Random Glucose 99 Lactic Acid Calcium 8.6 Total Bilirubin 0.3 AST 131 H ALT 160 H Alkaline Phosphatase 73 Total Protein 6.2 L Albumin 3.4 L Globulin 2.8 Albumin/Globulin Ratio 1.2 Urine Color Urine Clarity Urine pH Ur Specific [place] Urine Protein Urine Glucose (UA) Urine Ketones Urine Blood Urine Nitrate Urine Bilirubin Urine Urobilinogen Ur Leukocyte Esterase Urine RBC (Auto) Urine WBC Clumps (Auto) Urine Microscopic WBC Ur Squamous Epith Cells Urine Bacteria Hepatitis A IgM Ab Negative Hep Bs Antigen Negative Negative Hep Bs Antibody Hep B Core IgM Ab Negative Hepatitis C Antibody Negative Negative 01/04/18 06:00 WBC RBC Hgb Hct MCV MCH MCHC RDW Plt Count MPV Neut % (Auto) Lymph % (Auto) [place] % (Auto) Eos % (Auto) Baso % (Auto) Neut # (Auto) Lymph # (Auto) [place] # (Auto) Eos # (Auto) Baso # (Auto) PT INR APTT Sodium Potassium Chloride Carbon Dioxide Anion Gap BUN Creatinine Est GFR ( Amer) Est GFR (Non-Af Amer) Random Glucose Lactic Acid Calcium Total Bilirubin AST ALT Alkaline Phosphatase Total Protein Albumin Globulin Albumin/Globulin Ratio Urine Color Urine Clarity Urine pH Ur Specific [place] Urine Protein Urine Glucose (UA) Urine Ketones Urine Blood Urine Nitrate Urine Bilirubin Urine Urobilinogen Ur Leukocyte Esterase Urine RBC (Auto) Urine WBC Clumps (Auto) Urine Microscopic WBC Ur Squamous Epith Cells Urine Bacteria Hepatitis A IgM Ab Hep Bs Antigen Hep Bs Antibody Negative Hep B Core IgM Ab Hepatitis C Antibody Assessment & Plan (1) Neutropenia Assessment and Plan: suspect Bactrim induced agranulocytosis last dose on Thursday agree with neutropenic precautions given severe neutropenia will plan for growth factor support if ANC remains < 500 given active UTI in AM Status: Acute (2) Anemia Assessment and Plan: rule out iron deficiency, rule out hemoglobinopathy trait Thank you for this interesting consult. Status: Acute
[2018-01-05 06:24] LABS: BASO % 0.8 % (0.0-2.0); EOS # 0.2 K/uL (0.0-0.7); EOS % 4.5 % (0.0-4.0); HEMOGLOBIN 11.1 g/dL (12.0-18.0); LYMPH # 2.3 K/uL (1.0-4.3); LYMPH % 64.3 % (20.0-40.0); MEAN CELL VOLUME 80.2 fl (80.0-94.0); MEAN CORPUSCULAR HEMOGLOBIN 26.4 pg (27.0-31.0); MEAN CORPUSCULAR HGB CONC 32.9 g/dL (33.0-37.0); MEAN PLATELET VOLUME 8.4 fl (7.2-11.7); MONO # 0.6 K/uL (0.0-0.8); MONO % 17.3 % (0.0-10.0); NEUT # 0.5 K/uL (1.8-7.0); NEUT % 13.1 % (50.0-75.0); NRBC % 0.1 % (0.0-0.0); RBC 4.2 Mil/uL (4.40-5.90); RED CELL DISTRIBUTION WIDTH 13.8 % (11.5-14.5); WHITE BLOOD COUNT 3.6 K/uL (4.8-10.8)
[2018-01-05 06:42] LABS: ALB/GLOB RATIO 1.2 (1.0-2.1); ALBUMIN 3.4 g/dL (3.5-5.0); ALT/SGPT 137 U/L (21-72); AST/SGOT 84 U/L (17-59); BLOOD UREA NITROGEN 11 mg/dl (9-20); CALCIUM 8.7 mg/dL (8.4-10.2); GFR NON-AFRICAN AMERICAN > 60
--- NOTE | 2018-01-05 08:10 | CP.PCM.PN ---
<Kerrie Spencer - Last Filed: 01/05/18 08:06> Subjective - Date & Time of Evaluation Date of Evaluation: 01/05/18 Time of Evaluation: 07:30 - Subjective Subjective: No acute overnight events. Pt states that he had a BM yesterday, void this AM and dysuria significantly improved. Denies n/v, good PO intake and ambulating in room. Objective - Vital Signs/Intake and Output Vital Signs (last 24 hours): Temp Pulse Resp BP Pulse Ox 97.9 F 79 19 109/64 99 01/05/18 00:00 01/05/18 00:00 01/05/18 00:00 01/05/18 00:00 01/05/18 00:00 - Medications Medications: Current Medications Acetaminophen (Tylenol 325mg Tab) 650 mg PO Q6 PRN PRN Reason: Pain, Mild (1-3) Acetaminophen (Tylenol 325mg Tab) 650 mg PO Q6 PRN PRN Reason: Fever >100.4 F Docusate Sodium (Colace) 100 mg PO BID [facility] Last Admin: 01/04/18 16:29 Dose: 100 mg Enoxaparin Sodium (Lovenox) 40 mg SC DAILY [facility] PRN Reason: Protocol Last Admin: 01/04/18 09:23 Dose: 40 mg Ceftriaxone Sodium 1 gm/ (Sodium Chloride) 100 mls @ 100 mls/hr IVPB DAILY [facility] PRN Reason: Protocol Last Admin: 01/04/18 10:23 Dose: 100 mls/hr Sennosides (Senokot Tab) 8.6 mg PO HS [facility] Last Admin: 01/04/18 22:13 Dose: 8.6 mg - Labs Labs: 01/05/18 05:50 01/05/18 05:50 PT 12.0 Seconds (9.8-13.1) 01/04/18 06:00 INR 1.1 01/04/18 06:00 APTT 29.3 Seconds (25.6-37.1) 01/04/18 06:00 - Constitutional Appears: No Acute Distress - Head Exam Head Exam: ATRAUMATIC - Eye Exam Eye Exam: EOMI, Normal appearance - ENT Exam ENT Exam: Mucous Membranes Moist - Respiratory Exam Respiratory Exam: Clear to Ausculation Bilateral, NORMAL BREATHING PATTERN. absent: Wheezes - Cardiovascular Exam Cardiovascular Exam: REGULAR RHYTHM, +S1, +S2 - GI/Abdominal Exam GI & Abdominal Exam: Soft, Normal Bowel Sounds. absent: Distended, Guarding, Tenderness - Extremities Exam Extremities Exam: Normal Inspection. absent: Calf Tenderness, Pedal Edema - Back Exam Back Exam: NORMAL INSPECTION. absent: CVA tenderness (L), CVA tenderness (R) - Neurological Exam Neurological Exam: Alert, Awake Assessment and Plan - Assessment and Plan (Free Text) Assessment: Assessment/Plan: 67 YO male with PMHx of BPH (s/p laser surgery) is admitted for UTI (failed outpatient treatment) and Leukopenia. UTI/Acute cystitis -failed outpt treatment with Cipro and Bactrim -c/w Ceftriaxone 1 gm daily IV -Urology consult; pending recs -urine cx pending, blood cx no growth x 24 hrs Leukopenia, neutropenia -acute on chronic (WBC 2.5 in 10/2017) -improving -likely 2/2 to Bactrim side effects -ANC 472 today -neutropenic precaution -hem/onc on consult; likely 2/2 to abx, may need granix Transaminitis -improving -likely 2/2 to abx -hepatitis panel neg BPH -chronic -s/p green light laser procedure -not on Flomax now as per urologist recommendations Constipation -chronic -Docusate, senakot, prune juice DVT Prophylaxis -lovenox <Gold Rangel - Last Filed: 01/07/18 06:57> Objective - Vital Signs/Intake and Output Vital Signs (last 24 hours): Temp Pulse Resp BP Pulse Ox 98 F 80 19 100/55 L 96 01/07/18 00:19 01/07/18 00:19 01/07/18 00:19 01/07/18 00:19 01/07/18 00:19 - Medications Medications: Current Medications Acetaminophen (Tylenol 325mg Tab) 650 mg PO Q6 PRN PRN Reason: Pain, Mild (1-3) Acetaminophen (Tylenol 325mg Tab) 650 mg PO Q6 PRN PRN Reason: Fever >100.4 F Docusate Sodium (Colace) 100 mg PO BID [facility] Last Admin: 01/06/18 16:24 Dose: 100 mg Enoxaparin Sodium (Lovenox) 40 mg SC DAILY [facility] PRN Reason: Protocol Last Admin: 01/06/18 09:48 Dose: 40 mg Ceftriaxone Sodium 1 gm/ (Sodium Chloride) 100 mls @ 100 mls/hr IVPB DAILY [facility] PRN Reason: Protocol Last Admin: 01/06/18 09:47 Dose: 100 mls/hr Sennosides (Senokot Tab) 8.6 mg PO HS [facility] Last Admin: 01/06/18 21:43 Dose: 8.6 mg - Labs Labs: 01/07/18 06:00 01/06/18 05:55 PT 12.0 Seconds (9.8-13.1) 01/04/18 06:00 INR 1.1 01/04/18 06:00 APTT 29.3 Seconds (25.6-37.1) 01/04/18 06:00 Attending/Attestation - Attestation I have personally seen and examined this patient.: Yes I have fully participated in the care of the patient.: Yes I have reviewed all pertinent clinical information, including history, physical exam and plan: Yes
[2018-01-05] MEDS: Enoxaparin 40 mg Syringe SC SCH (08:59)
--- NOTE | 2018-01-05 18:08 | CP.PCM.PN ---
Subjective - Date & Time of Evaluation Date of Evaluation: 01/05/18 Time of Evaluation: 14:00 - Subjective Subjective: No complaints. Objective - Vital Signs/Intake and Output Vital Signs (last 24 hours): Temp Pulse Resp BP Pulse Ox 98 F 85 18 107/64 97 01/05/18 16:39 01/05/18 16:39 01/05/18 16:39 01/05/18 16:39 01/05/18 16:39 - Medications Medications: Current Medications Acetaminophen (Tylenol 325mg Tab) 650 mg PO Q6 PRN PRN Reason: Pain, Mild (1-3) Acetaminophen (Tylenol 325mg Tab) 650 mg PO Q6 PRN PRN Reason: Fever >100.4 F Docusate Sodium (Colace) 100 mg PO BID [facility] Last Admin: 01/05/18 17:27 Dose: 100 mg Enoxaparin Sodium (Lovenox) 40 mg SC DAILY [facility] PRN Reason: Protocol Last Admin: 01/05/18 08:59 Dose: 40 mg Ceftriaxone Sodium 1 gm/ (Sodium Chloride) 100 mls @ 100 mls/hr IVPB DAILY [facility] PRN Reason: Protocol Last Admin: 01/05/18 08:59 Dose: 100 mls/hr Sennosides (Senokot Tab) 8.6 mg PO HS [facility] Last Admin: 01/04/18 22:13 Dose: 8.6 mg - Labs Labs: 01/05/18 05:50 01/05/18 05:50 PT 12.0 Seconds (9.8-13.1) 01/04/18 06:00 INR 1.1 01/04/18 06:00 APTT 29.3 Seconds (25.6-37.1) 01/04/18 06:00 - Head Exam Head Exam: ATRAUMATIC - Eye Exam Eye Exam: Normal appearance - ENT Exam ENT Exam: Mucous Membranes Dry - Respiratory Exam Respiratory Exam: NORMAL BREATHING PATTERN - Cardiovascular Exam Cardiovascular Exam: +S1, +S2 - GI/Abdominal Exam GI & Abdominal Exam: Normal Bowel Sounds Assessment and Plan (1) Neutropenia Assessment & Plan: suspect bactrim induced agranulocytosis cont. to have severe neutropenia; will add growth factor today repeat CBC in AM Status: Acute (2) Anemia Assessment & Plan: anemia of chronic disease Status: Acute
[2018-01-06 02:50] LABS: MCH 26.3 pg (27.0-33.0); MCV 79.7 fL (80.0-100.0)
[2018-01-06 06:31] LABS: BASO # 0.1 K/uL (0.0-0.2); BASO % 1.5 % (0.0-2.0); EOS # 0.2 K/uL (0.0-0.7); HEMOGLOBIN 11.6 g/dL (12.0-18.0); LYMPH # 2.6 K/uL (1.0-4.3); LYMPH % 63.2 % (20.0-40.0); MEAN CELL VOLUME 79.9 fl (80.0-94.0); MEAN CORPUSCULAR HGB CONC 33.8 g/dL (33.0-37.0); MEAN PLATELET VOLUME 7.8 fl (7.2-11.7); MONO # 0.6 K/uL (0.0-0.8); MONO % 14.8 % (0.0-10.0); NEUT # 0.7 K/uL (1.8-7.0); NEUT % 16.5 % (50.0-75.0); NRBC % 0.1 % (0.0-0.0); RBC 4.28 Mil/uL (4.40-5.90); RED CELL DISTRIBUTION WIDTH 13.3 % (11.5-14.5); WHITE BLOOD COUNT 4.2 K/uL (4.8-10.8)
[2018-01-06 07:09] LABS: ALB/GLOB RATIO 1.2 (1.0-2.1); ALBUMIN 3.4 g/dL (3.5-5.0); ALT/SGPT 119 U/L (21-72); AST/SGOT 68 U/L (17-59); BLOOD UREA NITROGEN 9 mg/dl (9-20); GFR NON-AFRICAN AMERICAN > 60
--- NOTE | 2018-01-06 07:21 | CP.PCM.PN ---
<Kerrie Spencer - Last Filed: 01/06/18 12:59> Subjective - Date & Time of Evaluation Date of Evaluation: 01/06/18 Time of Evaluation: 07:21 - Subjective Subjective: No acute overnight events. Pt had a BM this AM, soft. Feeling well, no dyuria today, no abdominal pain, n/v and remains without fever. Objective - Vital Signs/Intake and Output Vital Signs (last 24 hours): Temp Pulse Resp BP Pulse Ox 97.9 F 72 18 106/69 97 01/05/18 23:56 01/05/18 23:56 01/05/18 23:56 01/05/18 23:56 01/05/18 23:56 - Medications Medications: Current Medications Acetaminophen (Tylenol 325mg Tab) 650 mg PO Q6 PRN PRN Reason: Pain, Mild (1-3) Acetaminophen (Tylenol 325mg Tab) 650 mg PO Q6 PRN PRN Reason: Fever >100.4 F Docusate Sodium (Colace) 100 mg PO BID [facility] Last Admin: 01/05/18 17:27 Dose: 100 mg Enoxaparin Sodium (Lovenox) 40 mg SC DAILY [facility] PRN Reason: Protocol Last Admin: 01/05/18 08:59 Dose: 40 mg Ceftriaxone Sodium 1 gm/ (Sodium Chloride) 100 mls @ 100 mls/hr IVPB DAILY [facility] PRN Reason: Protocol Last Admin: 01/05/18 08:59 Dose: 100 mls/hr Sennosides (Senokot Tab) 8.6 mg PO HS [facility] Last Admin: 01/05/18 21:31 Dose: 8.6 mg - Labs Labs: 01/06/18 05:55 01/06/18 05:55 PT 12.0 Seconds (9.8-13.1) 01/04/18 06:00 INR 1.1 01/04/18 06:00 APTT 29.3 Seconds (25.6-37.1) 01/04/18 06:00 - Constitutional Appears: No Acute Distress - Head Exam Head Exam: NORMAL INSPECTION - ENT Exam ENT Exam: Mucous Membranes Moist - Respiratory Exam Respiratory Exam: Clear to Ausculation Bilateral, NORMAL BREATHING PATTERN. absent: Wheezes - Cardiovascular Exam Cardiovascular Exam: REGULAR RHYTHM, +S1 - GI/Abdominal Exam GI & Abdominal Exam: Soft, Normal Bowel Sounds. absent: Distended, Guarding, Tenderness - Extremities Exam Extremities Exam: Normal Inspection. absent: Calf Tenderness, Pedal Edema - Back Exam Back Exam: NORMAL INSPECTION. absent: CVA tenderness (L), CVA tenderness (R) - Neurological Exam Neurological Exam: Alert, Awake Assessment and Plan - Assessment and Plan (Free Text) Assessment: Assessment/Plan: 67 YO male with PMHx of BPH (s/p laser surgery) is admitted for UTI (failed outpatient treatment) and Leukopenia. 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 -s/p 1 unit of granix 01/05 Transaminitis -improving -likely 2/2 to abx -hepatitis panel neg BPH -chronic -s/p green light laser procedure -not on Flomax now as per urologist recommendations Constipation -chronic -Docusate, senakot, prune juice DVT Prophylaxis -lovenox <Edwin Iqbalo A - Last Filed: 01/07/18 14:11> Objective - Vital Signs/Intake and Output Vital Signs (last 24 hours): Temp Pulse Resp BP Pulse Ox 97.6 F 88 19 114/78 97 01/07/18 07:33 01/07/18 07:33 01/07/18 07:33 01/07/18 07:33 01/07/18 07:33 - Labs Labs: 01/07/18 06:00 01/06/18 05:55 PT 12.0 Seconds (9.8-13.1) 01/04/18 06:00 INR 1.1 01/04/18 06:00 APTT 29.3 Seconds (25.6-37.1) 01/04/18 06:00 Attending/Attestation - Attestation I have personally seen and examined this patient.: Yes I have fully participated in the care of the patient.: Yes I have reviewed all pertinent clinical information, including history, physical exam and plan: Yes
[2018-01-06] MEDS: Enoxaparin 40 mg Syringe SC SCH (09:48)
[2018-01-07 00:20] VITALS: RESP 19
[2018-01-07 04:49] LABS: HEMOGLOBIN A 96.7 Percent (>96.0); HEMOGLOBIN A2 2.3 Percent (1.8-3.5)
[2018-01-07 06:14] LABS: BASO # 0.1 K/uL (0.0-0.2); BASO % 1.4 % (0.0-2.0); EOS # 0.2 K/uL (0.0-0.7); EOS % 4.8 % (0.0-4.0); HEMOGLOBIN 11.5 g/dL (12.0-18.0); LYMPH # 2.4 K/uL (1.0-4.3); LYMPH % 62.1 % (20.0-40.0); MEAN CELL VOLUME 80.8 fl (80.0-94.0); MEAN CORPUSCULAR HEMOGLOBIN 26.4 pg (27.0-31.0); MEAN CORPUSCULAR HGB CONC 32.7 g/dL (33.0-37.0); MEAN PLATELET VOLUME 7.6 fl (7.2-11.7); MONO # 0.6 K/uL (0.0-0.8); MONO % 14.7 % (0.0-10.0); NEUT # 0.6 K/uL (1.8-7.0); NRBC % 0.2 % (0.0-0.0); RBC 4.34 Mil/uL (4.40-5.90); RED CELL DISTRIBUTION WIDTH 13.4 % (11.5-14.5); WHITE BLOOD COUNT 3.8 K/uL (4.8-10.8)
[2018-01-07 07:34] VITALS: BP 114/78; PULSE 88; TEMP 97.6; O2SAT 97
--- NOTE | 2018-01-07 08:40 | CP.PCM.DIS ---
Provider - Provider Date of Admission: 01/03/18 23:17 Attending physician: Tristen Iqbal MD Time Spent in preparation of Discharge (in minutes): 35 Diagnosis - Discharge Diagnosis (1) Leukopenia Status: Acute (2) Neutropenia Status: Acute (3) Urinary tract infection Status: Acute Hospital Course - Lab Results Lab Results: Micro Results 01/03/18 23:00 Blood Blood Culture - Preliminary NO GROWTH AFTER 3 DAYS 01/03/18 22:30 Blood Blood Culture - Preliminary NO GROWTH AFTER 3 DAYS 01/05/18 12:42 Urine,Clean Catch Urine Culture - Preliminary Gram Pos Cocci In Chains 01/03/18 22:30 Urine Urine Culture - Final MULTIPLE SPECIES. SUGGEST REPEAT SPECIMEN. Most Recent Lab Values WBC 3.8 K/uL (4.8-10.8) L 01/07/18 06:00 RBC 4.34 Mil/uL (4.40-5.90) L 01/07/18 06:00 Hgb 11.5 g/dL (12.0-18.0) L 01/07/18 06:00 Hct 35.1 % (35.0-51.0) 01/07/18 06:00 MCV 80.8 fl (80.0-94.0) 01/07/18 06:00 MCH 26.4 pg (27.0-31.0) L 01/07/18 06:00 MCHC 32.7 g/dL (33.0-37.0) L 01/07/18 06:00 RDW 13.4 % (11.5-14.5) 01/07/18 06:00 Plt Count 279 K/uL (130-400) 01/07/18 06:00 MPV 7.6 fl (7.2-11.7) 01/07/18 06:00 Neut % (Auto) 17.0 % (50.0-75.0) L 01/07/18 06:00 Lymph % (Auto) 62.1 % (20.0-40.0) H 01/07/18 06:00 Barton % (Auto) 14.7 % (0.0-10.0) H 01/07/18 06:00 Eos % (Auto) 4.8 % (0.0-4.0) H 01/07/18 06:00 Baso % (Auto) 1.4 % (0.0-2.0) 01/07/18 06:00 Neut # (Auto) 0.6 K/uL (1.8-7.0) L 01/07/18 06:00 Lymph # (Auto) 2.4 K/uL (1.0-4.3) 01/07/18 06:00 Barton # (Auto) 0.6 K/uL (0.0-0.8) 01/07/18 06:00 Eos # (Auto) 0.2 K/uL (0.0-0.7) 01/07/18 06:00 Baso # (Auto) 0.1 K/uL (0.0-0.2) 01/07/18 06:00 Retic Count 0.7 % (0.5-1.5) 01/05/18 05:50 Hemoglobin A 96.7 Percent (>96.0) 01/05/18 05:50 Hemoglobin A2 2.3 Percent (1.8-3.5) 01/05/18 05:50 Hemoglobin C 0.0 Percent (0.0-0.0) 01/05/18 05:50 Hemoglobin F () <1.0 Percent (<2.0) 01/05/18 05:50 Hemoglobin S 0.0 Percent (0.0-0.0) 01/05/18 05:50 Variant Hemoglobin 0.0 Percent (0.0-0.0) 01/05/18 05:50 Hemoglobinopathy Red Blood Count 4.11 Mill/mcL (4.20-5.80) L 01/05/18 05:50 Hemoglobinopathy Hct 32.8 % (38.5-50.0) L 01/05/18 05:50 Hemoglobinopathy Hgb 10.8 g/dL (13.2-17.1) L 01/05/18 05:50 Hemoglobinopathy MCV 79.7 fL (80.0-100.0) L 01/05/18 05:50 Hemoglobinopathy MCH 26.3 pg (27.0-33.0) L 01/05/18 05:50 Hemoglobinopathy RDW 13.8 % (11.0-15.0) 01/05/18 05:50 Hemoglobinopathy Interp See note 01/05/18 05:50 PT 12.0 Seconds (9.8-13.1) 01/04/18 06:00 INR 1.1 01/04/18 06:00 APTT 29.3 Seconds (25.6-37.1) 01/04/18 06:00 Sodium 139 mmol/l (132-148) 01/06/18 05:55 Potassium 5.0 MMOL/L (3.6-5.0) 01/06/18 05:55 Chloride 100 mmol/L (98-107) 01/06/18 05:55 Carbon Dioxide 33 mmol/L (22-30) H 01/06/18 05:55 Anion Gap 11 (10-20) 01/06/18 05:55 BUN 9 mg/dl (9-20) 01/06/18 05:55 Creatinine 0.6 mg/dl (0.8-1.5) L 01/06/18 05:55 Est GFR ( Amer) > 60 01/06/18 05:55 Est GFR (Non-Af Amer) > 60 01/06/18 05:55 Random Glucose 100 mg/dL (75-110) 01/06/18 05:55 Lactic Acid 1.3 MMOL/L (0.7-2.1) 01/03/18 22:30 Calcium 9.0 mg/dL (8.4-10.2) 01/06/18 05:55 Ferritin 349.0 ng/Ml (17.9-464) 01/05/18 05:50 Total Bilirubin 0.3 mg/dl (0.2-1.3) 01/06/18 05:55 AST 68 U/L (17-59) H 01/06/18 05:55 ALT 119 U/L (21-72) H 01/06/18 05:55 Alkaline Phosphatase 82 U/L (38-126) 01/06/18 05:55 Total Protein 6.3 G/DL (6.3-8.2) 01/06/18 05:55 Albumin 3.4 g/dL (3.5-5.0) L 01/06/18 05:55 Globulin 2.9 gm/dL (2.2-3.9) 01/06/18 05:55 Albumin/Globulin Ratio 1.2 (1.0-2.1) 01/06/18 05:55 Vitamin B12 757 pg/mL (239-931) 01/05/18 05:50 Folate 16.0 ng/mL 01/05/18 05:50 Urine Color Fadia (YELLOW) 01/03/18 22:30 Urine Clarity Turbid (Clear) 01/03/18 22:30 Urine pH 6.0 (5.0-8.0) 01/03/18 22:30 Ur Specific Hunker 1.023 (1.003-1.030) 01/03/18 22:30 Urine Protein 100 mg/dL (NEGATIVE) 01/03/18 22:30 Urine Glucose (UA) Neg mg/dL (Normal) 01/03/18 22:30 Urine Ketones Negative mg/dL (NEGATIVE) 01/03/18 22:30 Urine Blood Moderate (NEGATIVE) 01/03/18 22:30 Urine Nitrate Negative (NEGATIVE) 01/03/18 22:30 Urine Bilirubin Negative (NEGATIVE) 01/03/18 22:30 Urine Urobilinogen 0.2-1.0 mg/dL (0.2-1.0) 01/03/18 22:30 Ur Leukocyte Esterase Large Doug/uL (Negative) 01/03/18 22:30 Urine RBC (Auto) 110 /hpf (0-3) H 01/03/18 22:30 Urine WBC Clumps (Auto) Rare /hpf (NONE) H 01/03/18 22:30 Urine Microscopic WBC 798 /hpf (0-5) H 01/03/18 22:30 Ur Squamous Epith Cells 1 /hpf (0-5) 01/03/18 22:30 Urine Bacteria Mod (<OCC) H 01/03/18 22:30 Hepatitis A IgM Ab Negative (NEGATIVE) 01/04/18 06:00 Hep Bs Antigen Negative (NEGATIVE) 01/04/18 06:00 Hep Bs Antibody Negative (NEGATIVE) 01/04/18 06:00 Hep B Core IgM Ab Negative (NEGATIVE) 01/04/18 06:00 Hepatitis C Antibody Negative (NEGATIVE) 01/04/18 06:00 HIV 1&2 Ag/Ab, 4th Gen Nonreactive (Nonreactive) 01/04/18 06:00 - Hospital Course Hospital Course: 67 YO male with PMHx of BPH (s/p laser surgery) is admitted for UTI (failed outpatient treatment) and Leukopenia. Pt was seen by Urology and Hem/onc as inpatient. Given 1x dose of granix, subsequently leukopenia improved. Patient cleared by urology, and hem/onc for discharged home. Follow up with Dr. Iqbal after discharge, and follow up with Urology and hem/onc as outpatient. D/c home with 5 more days of PO abx with Doxycycline 100mg PO BID (pos sensitivity in urine cx). Discharge Exam - Head Exam Head Exam: NORMAL INSPECTION - Eye Exam Eye Exam: Normal appearance - ENT Exam ENT Exam: Mucous Membranes Moist - Respiratory Exam Respiratory Exam: Clear to PA & Lateral, NORMAL BREATHING PATTERN. absent: Wheezes - Cardiovascular Exam Cardiovascular Exam: REGULAR RHYTHM, +S1, +S2 - GI/Abdominal Exam GI & Abdominal Exam: Normal Bowel Sounds, Soft. absent: Distended, Firm, Tenderness - Extremities Exam Extremities exam: normal inspection - Back Exam Back exam: NORMAL INSPECTION. absent: CVA tenderness (L), CVA tenderness (R) - Neurological Exam Neurological exam: Alert, Oriented x3 - Psychiatric Exam Psychiatric exam: Normal Affect, Normal Mood Discharge Plan - Discharge Medications Prescriptions: Docusate [Colace] 100 mg PO BID #30 cap Doxycycline Hyclate 100 mg PO BID 5 Days #10 capsule Phenazopyridine HCl [Pyridium] 100 mg PO DAILY #2 tablet Sennosides A and B [Senokot Tab] 8.6 mg PO HS #30 tab - Follow Up Plan Condition: FAIR Disposition: HOME/ ROUTINE Patient education suggested?: Yes Instructions: Neutropenia (DC), Drug Allergy, Urinary Tract Infection in Men ( DC) Additional Instructions: Please follow up with MD within 1 week of d/c, call Dr. Iqbal's office for apt Follow up with Urology outpatient ER precautions for worsening symptoms, fever over 100.4 with Tylenol, chills Referrals: Jaycob Sanchez MD [Staff Provider] - Becca Tyler MD [Medical Doctor] - Tristen Iqbal MD [Family Provider] -
[2018-01-07] MEDS: Enoxaparin 40 mg Syringe SC SCH (09:42)
== END 2018-01-07 12:42 | disposition home or self-care (01) | DRG 809 ==
LOC: H.ER 21:22 → H.ERHOLD 23:17 → H.MEDSURG1 01-04 01:31
PROVIDERS: ADMIT Family Medicine; ATTEND Family Medicine
DX: D70.2 Other drug-induced agranulocytosis (principal); T83.511A Infection and inflammatory reaction due to indwelling urethral catheter, initial encounter; N30.00 Acute cystitis without hematuria; T81.4XXA Infection following a procedure, initial encounter; Y73.2 Prosthetic and other implants, materials and accessory gastroenterology and urology devices associated with adverse incidents; N99.89 Other postprocedural complications and disorders of genitourinary system; K59.00 Constipation, unspecified; Z87.891 Personal history of nicotine dependence; Z88.2 Allergy status to sulfonamides; L27.1 Localized skin eruption due to drugs and medicaments taken internally; T37.0X5A Adverse effect of sulfonamides, initial encounter; R74.0 Nonspecific elevation of levels of transaminase and lactic acid dehydrogenase [LDH]; D63.8 Anemia in other chronic diseases classified elsewhere